=== PATIENT | male | born 1970 | race Two or more races ===

== ENCOUNTER → 2023-05-09 | Outpatient (CLI) | payer BC ==
[2023-05-09 13:13] LABS: Basophils # (auto) 0 10 ^3/uL (0-0.2); Basophils % (auto) 0.4 % (0.0-2.0); Eosinophils # (auto) 0.1 10 ^3/uL (0-0.8); Hematocrit 42.2 % (41.0-53.0); Hemoglobin 14.3 g/dL (13.5-17.5); Lymphocytes % (auto) 30.7 % (10.0-50.0); Mean Corpuscular Hemoglobin 31.1 pg (28.0-32.0); Mean Corpuscular Volume 91.4 fL (80.0-100.0); Monocytes # (auto) 0.6 10 ^3/uL (0-1.3); Monocytes % (auto) 9.7 % (0.0-12.0); Neutrophils # (auto) 3.9 10 ^3/uL (1.6-8.6); Neutrophils % (auto) 58.2 % (37.0-80.0); Red Blood Cells 4.62 10^6/uL (4.5-5.90); Red Cell Distribution Width 13.7 % (11.8-14.3); White Blood Cell 6.7 10^3/uL (4.4-10.8)
[2023-05-09 13:14] LABS: Urine Bacteria NONE SEEN /hpf (None Seen); Urine Blood Negative /uL (Negative); Urine Clarity Clear (Clear); Urine Color Yellow (Yellow); Urine Mucus FEW (None Seen); Urine Protein, UAD Negative (Negative); Urine Specific Gravity 1.025 (1.001-1.035); Urine Urobilinogen Normal (Negative); Urine WBC <1 /hpf (0 - 3); Urine pH 5.5 (5.0-8.0)
[2023-05-09 13:56] LABS: Alanine Aminotransferase 29 U/L (7-40); Albumin 4.5 g/dL (3.2-4.8); Alkaline Phosphatase 68 U/L (46-116); Anion Gap 8 (5-15); Aspartate Aminotransferase 20 U/L (13-40); BUN/Creatinine Ratio 17.3 (10.0-20.0); Blood Urea Nitrogen 14 mg/dL (9-23); Calcium 9.2 mg/dL (8.5-10.1); Carbon Dioxide 24 mmol/L (20-30); Chloride 107 mmol/L (98-107); Cholesterol 150 mg/dL (< 200); Glucose 91 mg/dL (74-106); HDL Cholesterol 43 mg/dL (40-59); LDL Cholesterol 89 mg/dL (< 100); Potassium 4.1 mmol/L (3.5-5.1); Sodium 139 mmol/L (136-145); Triglycerides 98 mg/dL (< 150)
[2023-05-09 13:57] LABS: Bilirubin, Total 0.8 mg/dL (0.2-1.0); Total Protein 7.1 g/dL (5.7-8.2)
== END | disposition home or self-care (01) ==
LOC: LAB 12:45
PROVIDERS: ATTEND Nurse Practitioner
DX: I10 Essential (primary) hypertension (principal); K92.1 Melena
CPT/HCPCS: 36415; 80053; 80061; 81001; 83036; 84153; 84443; 85025